=== PATIENT | female | born 1995 | race Caucasian/White ===

== ENCOUNTER 2021-05-16 01:19 | Emergency (ER) | payer OTHER ==
[~2021-05-16] VITALS: Ht 167.6 cm; Wt 57.2 kg
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
[2021-05-16 01:50] VITALS: BP 110/69
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
== END 2021-05-16 01:50 | disposition left against medical advice (07) ==
LOC: ER 01:22
DX: Z53.21 Procedure and treatment not carried out due to patient leaving prior to being seen by health care provider (principal); R51.9 Headache, unspecified; M25.521 Pain in right elbow